=== PATIENT | female | born 1930 | race Caucasian/White ===

== ENCOUNTER 2016-10-29 12:56 | Outpatient (CLI) | payer OTHER ==
--- NOTE | 2016-10-29 17:39 | DIAGNOSTIC IMAGING REPORT ---
REFERRING PHYSICIAN/PROVIDER: Shena SNOW CONSULTING CERTIFIED TRAVEL COUNSELOR: Rodrigo Almanza MD PROCEDURE: M-mode 2D echocardiography with spectral and color flow Doppler TECHNICAL QUALITY: Adequate INDICATION: SHORTNESS OF BREATH RHYTHM DURING PROCEDURE: Normal sinus rhythm with PACs. INTERPRETATIONS: LEFT VENTRICLE: The left ventricular chamber size is within normal limits. There is borderline concentric left ventricular hypertrophy. The left ventricular ejection fraction is normal with an estimated ejection fraction of 65-70%. There are no focal wall motion abnormalities. There is LV grade 1 diastolic dysfunction. RIGHT VENTRICLE: The right ventricular chamber size and systolic function are both within normal limits. ATRIA: The left atrial chamber size is within normal limits. The right atrial chamber size is within normal limits. The interatrial septum is intact. MITRAL VALVE: There is mild mitral annular calcification. There is mild thickening of the mitral leaflets. There is trace mitral regurgitation. AORTIC VALVE: The aortic valve is trileaflet. It opens well. There is no aortic regurgitation. TRICUSPID VALVE: The leaflets are thin and pliable. There is no significant tricuspid regurgitation. The right ventricular systolic pressure could not be estimated because the lack of a measurable TR jet velocity. PULMONIC VALVE: The pulmonic valve is not well visualized. There is no gross evidence of significant pulmonic regurgitation. GREAT VESSELS: The aortic root and the ascending aorta are both within normal limits. The IVC is less than 2.1 cm and collapses more than 50% during respiration. This is consistent with a low right atrial pressure of 3 mmHg. PERICARDIUM: There is no evidence of pericardial fusion. IMPRESSION: 1. There is normal left ventricular systolic function with LV grade 1 diastolic function. 2. The right ventricular chamber size and systolic function are both within normal limits. 3. Biatrial chamber sizes are both within normal limits. 4. There are no significant valvular abnormalities.
== END 2016-10-29 23:00 ==
LOC: US SRH 12:56
DX: R06.02 Shortness of breath (principal)